=== PATIENT | female | born 1985 | race Caucasian/White ===

== ENCOUNTER 2016-08-04 09:32 | Emergency (ER) | payer OTHER ==
[2016-08-04 09:33] VITALS: BP 125/84; PULSE 133; RESP 20; O2SAT 96
--- NOTE | 2016-08-04 10:41 | ED.REPORT ---
HPI-General Illness Date of Service Aug 04, 2016 ED Provider: Bladimir Clark DO Patient is a 31 year old female who presents to the ED complaining of flu-like symptoms onset 2 days ago. Associated symptoms include decreased appetite, nausea, diarrhea, fever, chills, cough, SOB, vomiting, and sore throat. She denies abdominal pain, hematochezia, or any other symptoms. She was seen at urgent care last week and given "a shot of penicillin and a steroid". She has been sick on and off since April. Nursing Notes Stated Complaint: FEVER/SOB Chief Complaint: FLU/Cold Symptoms Nursing Notes Reviewed: Yes Allergies: Coded Allergies: No Known Allergies (Unverified , 08/04/16) Scheduled Oseltamivir Phosphate (Tamiflu) 75 Mg Capsule 75 MG PO BID Scheduled PRN Naproxen (Naproxen) 500 Mg Tab 500 MG PO BID PRN PRN For Pain Ondansetron ODT (Zofran ODT) 4 Mg Tablet 4 MG PO Q4H PRN PRN For Nausea General Time Seen by MD: 10:40 Chief Complaint Flu-like illness Hx Obtained From: Patient Arrived By: Walk-in Sudden in Onset?: Yes Onset Occurred: 2 days ago Symptom Duration: Since onset Recent Healthcare: Recent doctor visit Past Medical History Past Medical History Migraines Past Surgical History Denies Smoking History Unknown if Ever Smoker Social History Other Social History: Lives with children Ambulatory Status Independent Review of Systems +decreased appetite Full Review of Systems Constitutional: Reports: Chills, Fever Ears / Nose / Throat: Reports: Sore throat Respiratory: Reports: Non-productive cough, Shortness of breath GI: Reports: Diarrhea, Nausea, Vomiting, Denies: Abdominal pain, Hematochezia Complete sys rev & neg: except as marked. Physical Exam Vital Signs Vital Signs Date Time Temp Pulse Resp B/P Pulse Ox O2 Delivery O2 Flow Rate FiO2 08/04/16 11:32 38.6 128 20 121/73 100 Room Air 08/04/16 09:33 38.5 133 20 125/84 96 Room Air Initial VS: Reviewed Head / Eyes: Atraumatic, Normocephalic Neck: Full range of motion Abdomen / GI: Soft, Non-tender Skin: Warm, Dry Neurologic: Alert, Oriented, Nonfocal Psychiatric: Mood/affect normal, Behavior normal, Normal thought content General/Constitutional: Awake, Alert, Well developed, Well hydrated Distress / Hydration: Positive: Distress moderate Febrile ENT: Airway patent, Pharynx NL Cardiovascular: Regular rhythm, Heart sounds NL Heart Rate / Rhythm: Positive: Tachycardia Interpretation & Diagnostics Lab Results Interpretation Lab Results Interpretation: Flu A + Re-Eval/Medical Decision Med Decision/Clinical Course Positive for influenza A and though the patient is mildly ill-appearing does not have any focal breath sounds or any other focal exam findings that would suggest life-threatening disease. She is mildly tachycardic and febrile though again well appearing. I do not think at this point that this is a life-threatening illness. She is prescribed naproxen, Zofran, Tamiflu. Return in follow-up precautions given. Time of Eval: 11:05 Re-Evaluation/Progress Note: Discussed plan for discharge with Tamiflu. Patient understands and agrees with plan. All questions addressed at this time. Counseled Regarding: Diagnosis, Lab results, Need for follow-up, When/why to return to ED Discharge & Departure Primary Impression: Influenza due to influenza A virus Disposition: Home Discharge Condition All VS Reviewed: Yes Condition: Stable Patient Instructions: Influenza (ED) Additional Instructions: You have influenza. Use Tamiflu, Tylenol, naproxen, Zofran as needed. You should go home, rest, and stay hydrated. You are contagious and should limit your exposure to others while still feeling ill or febrile. Return to the ER or follow up with your primary care doctor as needed for worsening symptoms. We hope you feel better soon! Referrals: [facility] Scribe Attestation Portions of this note were transcribed by Kinga Stearns. I, Dr. Clark personally performed the history, physical exam and medical decision-making; I reviewed and confirmed the accuracy of the information in the transcribed note. Signed by: Kinga Stearns 08/04/16, 1133 copies to: [facility] Bladimir Clark DO Aug 04, 2016 10:41 KINGA STEARNS Aug 04, 2016 11:06
[2016-08-04] MEDS ORDERED: Ondansetron 8 mg ODT Tablet PO ONE (11:15)
[2016-08-04] MEDS ORDERED: NPR500T PO (11:24)
[2016-08-04] MEDS ORDERED: ONDA4TAB9 PO (11:24)
[2016-08-04] MEDS ORDERED: TAM75UDCAP PO (11:24)
[2016-08-04 11:32] VITALS: BP 121/73; PULSE 128; RESP 20; O2SAT 100
== END 2016-08-04 11:33 | disposition home or self-care (01) ==
LOC: SED 09:32
DX: J10.1 Influenza due to other identified influenza virus with other respiratory manifestations (principal); R19.7 Diarrhea, unspecified; R50.9 Fever, unspecified; R06.02 Shortness of breath